=== PATIENT | female | born 2000 | race Asian ===

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

== ENCOUNTER 2022-11-10 09:20 | Emergency (ER) | payer OTHER ==
[2022-11-10 09:31] VITALS: BP 109/68; PULSE 105; RESP 16; TEMP 98.1; BMI 20.1
[2022-11-10] MEDS ORDERED: ACETAMINOPHEN 325 MG TABLET (FP) PO ONE (09:54)
[2022-11-10] MEDS ORDERED: ACETAMINOPHEN 325 MG TABLET (FP) ONE (10:11)
== END 2022-11-10 12:14 | disposition home or self-care (01) ==
LOC: JERFT 09:20
DX: H92.02 Otalgia, left ear (principal); J02.9 Acute pharyngitis, unspecified; B34.9 Viral infection, unspecified
CPT/HCPCS: 87651; 99283-25

== ENCOUNTER 2023-11-21 21:01 | Emergency (ER) | payer OTHER ==
[2023-11-21 21:17] VITALS: BP 110/70; PULSE 117; RESP 20; TEMP 98.2; BMI 23.1
== END 2023-11-21 21:52 | disposition home or self-care (01) ==
LOC: JERFT 21:01 → JER 21:01 → JERFT 21:52
DX: S61.312A Laceration without foreign body of right middle finger with damage to nail, initial encounter (principal); W27.4XXA Contact with kitchen utensil, initial encounter
CPT/HCPCS: 99283-25